=== PATIENT | female | born 1945 | race Caucasian/White ===

== ENCOUNTER → 2016-03-29 | Outpatient (CLI) | payer BC ==
[~2016-03-29] MED LIST: ASCO500T16 PO; ASPI81TA28 PO; CHOL1TAB42 PO; CYAN500T13 PO; DOCU100C31 PO; FAMO20TA11 PO; FOLI1TAB7 PO; OMEP10CA2 PO; PROBCAP3 PO; PSYL55.43 PO; RESVERATROL PO; VITAMIN B6 PO; VITAMIN E PO; [UNRECOGNIZED DRUG - OTHER] PO
[2016-03-29 12:16] LABS: URINE APPEARANCE CLEAR (CLEAR); URINE BILIRUBIN NEG (NEG); URINE COLOR YELLOW; URINE EPITHELIAL CELL AUTO 0-5 /lpf (0-5); URINE NITRITE NEG (NEG); URINE PH 5.5 (4.5-7.5); URINE SPECIFIC GRAVITY 1.003 (1.000-1.030); UROBILINOGEN NEG (NEG)
[2016-03-29 12:21] LABS: MANUAL MICROSCOPIC REQUIRED? NO; REVIEW REQ? NO
== END | disposition home or self-care (01) ==
LOC: C.LABBC 08:31
PROVIDERS: ATTEND Family Medicine
DX: R10.9 Unspecified abdominal pain (principal)

== ENCOUNTER → 2016-04-10 | Outpatient (CLI) | payer BC | END | disposition home or self-care (01) | LOC: C.LABBC 10:57 | PROVIDERS: ATTEND Podiatrist Primary Podiatric Medicine | DX: L03.115 Cellulitis of right lower limb (principal); M79.671 Pain in right foot ==

== ENCOUNTER → 2016-06-01 | Outpatient (CLI) | payer BC ==
--- NOTE | 2016-06-01 10:07 | DIAGNOSTIC IMAGING REPORT ---
KUB HISTORY: Generalized ABDOMINAL PAIN COMPARISON: Chest and abdominal series 08/15/2015. FINDINGS: Large amount of well-formed stool seen throughout the colon. This most pronounced within the sigmoid colon and rectum. Gas-filled loops of small bowel without evidence for small bowel obstruction. Scoliosis is again noted. No renal calculi. No ureteral calculi. No pneumoperitoneum or pneumatosis. IMPRESSION: Large amount of well-formed stool seen within the colon primarily within the distal colon and rectum. This has progressed compared to the prior study. Electronically signed by: Davonte Kendrick M.D. 06/01/2016 10:05 AM Dictated Date/Time: 06/01/2016 10:04 AM
== END | disposition home or self-care (01) ==
LOC: C.RADBC 09:47
PROVIDERS: ATTEND Physician Assistant
DX: R10.9 Unspecified abdominal pain (principal)

== ENCOUNTER → 2016-07-16 | Outpatient (CLI) | payer BC ==
--- NOTE | 2016-07-16 14:37 | DIAGNOSTIC IMAGING REPORT ---
RENAL ULTRASOUND HISTORY: Flank pain RT SIDED BACK PAIN, COMPARISON: None. FINDINGS: Right kidney: Maximum dimension 10.6 cm. No evidence for hydronephrosis. Normal corticomedullary differentiation and cortical thickness. Left kidney: Maximum dimension 9.8 cm. No evidence for hydronephrosis. Normal corticomedullary differentiation and cortical thickness. Bladder: No bladder wall thickening. The bilateral ureteral jets were identified. IMPRESSION: Normal renal ultrasound. Electronically signed by: Alex Mcclelland M.D. 07/16/2016 2:36 PM Dictated Date/Time: 07/16/2016 2:36 PM
== END | disposition home or self-care (01) ==
LOC: C.ULTRBC 13:42
PROVIDERS: ATTEND Family Medicine
DX: M54.9 Dorsalgia, unspecified (principal)

== ENCOUNTER → 2016-08-13 | Outpatient (CLI) | payer BC ==
--- NOTE | 2016-08-16 14:30 | MAMMOGRAPHY REPORT ---
BILATERAL DIGITAL SCREENING MAMMOGRAM WITH CAD: 08/13/2016 CLINICAL HISTORY: Patient presents for routine screening. S/P bilateral augmentation. TECHNIQUE: Current study was also evaluated with a Computer Aided Detection (CAD) system. Bilateral CC and MLO views including implant displaced views were obtained. COMPARISON: Comparison is made to exams dated: 03/04/2015 mammogram, 01/10/2014 mammogram, 12/07/2012 mammogram, 11/08/2011 ultrasound, 11/08/2011 mammogram, and 10/09/2010 mammogram - [facility]. BREAST COMPOSITION: The tissue of both breasts is heterogeneously dense, which may obscure small mas ses. FINDINGS: No suspicious masses, calcifications, or areas of architectural distortion are noted in ei ther breast. There has been no significant interval change compared to prior exams. Bilateral subpec chacho silicone implants are stable in appearance. IMPRESSION: ACR BI-RADS CATEGORY 2: BENIGN There is no mammographic evidence of malignancy. A 1 year screening mammogram is recommended. The pa tient will receive written notification of the results. Approximately 10% of breast cancers are not detected with mammography. A negative mammographic report should not delay biopsy if a clinically suggestive mass is present. Jessenia Schroeder M.D. ah/:08/13/2016 15:18:30 Divorce Lawyer: Zayra Brice, [facility] letter sent: Normal 1/2 BI-RADS Code: ACR BI-RADS Category 2: Benign
== END | disposition home or self-care (01) ==
LOC: C.MAMM 13:54
PROVIDERS: ATTEND Obstetrics & Gynecology
DX: Z12.31 Encounter for screening mammogram for malignant neoplasm of breast (principal); Z98.82 Breast implant status

== ENCOUNTER → 2016-11-01 | Outpatient (CLI) | payer BC ==
--- NOTE | 2016-11-01 15:21 | DIAGNOSTIC IMAGING REPORT ---
LEFT FOURTH AND FIFTH FINGER 3 VIEWS CLINICAL HISTORY: Left fourth and fifth finger pain. COMPARISON STUDY: None. FINDINGS: Oblique fracture within the base of the middle phalanx of the fourth finger which demonstrates slight distraction. There is also an oblique fracture through the proximal shaft of the proximal phalanx of the left fifth finger. This demonstrates mild dorsal angulation and slight overlap. No dislocation. The bones are osteopenic. Soft tissue swelling within the proximal fourth and fifth fingers. IMPRESSION: Fractures within the middle phalanx of the left fourth finger and proximal phalanx of the left fifth finger as described above. Electronically signed by: Davonte Kendrick M.D. 11/01/2016 3:20 PM Dictated Date/Time: 11/01/2016 3:18 PM
== END | disposition home or self-care (01) ==
LOC: C.RADBC 14:52
PROVIDERS: ATTEND Physician Assistant
DX: S62.655A Nondisplaced fracture of middle phalanx of left ring finger, initial encounter for closed fracture (principal); S62.647A Nondisplaced fracture of proximal phalanx of left little finger, initial encounter for closed fracture; X58.XXXA Exposure to other specified factors, initial encounter

== ENCOUNTER → 2016-11-16 | Outpatient (CLI) | payer BC ==
--- NOTE | 2016-11-16 16:25 | DIAGNOSTIC IMAGING REPORT ---
BILATERAL LOWER EXTREMITY VENOUS DOPPLER HISTORY: M25.561 Right knee painM25.561 Tenderness of knee, [id number] COMPARISON STUDY: None. FINDINGS: There is normal compressibility, flow, and augmentation within the bilateral lower extremity deep venous systems. A 1.5 x 0.8 x 0.4 cm right popliteal cyst. IMPRESSION: No DVT within the right or left lower extremity. Electronically signed by: Davonte Kendrick M.D. 11/16/2016 4:24 PM Dictated Date/Time: 11/16/2016 4:23 PM
== END | disposition home or self-care (01) ==
LOC: C.ULTR 15:46
PROVIDERS: ATTEND Physician Assistant Medical
DX: M25.561 Pain in right knee (principal)

== ENCOUNTER → 2016-12-22 | Outpatient (CLI) | payer BC ==
--- NOTE | 2016-12-22 09:57 | DIAGNOSTIC IMAGING REPORT ---
PA CHEST RADIOGRAPH AND UPRIGHT AND SUPINE AP RADIOGRAPHS OF THE ABDOMEN CLINICAL HISTORY: Constipation. COMPARISON STUDY: Chest radiograph December 15, [address] of the abdomen and pelvis November 25, 2015. FINDINGS: Incidental note is made of bilateral breast implants. Note is made of scoliosis of the thoracolumbar spine. Lungs are clear. No pneumothorax or pleural effusion is present. Cardiomediastinal silhouette is normal. There is a moderate amount stool within the colon and large amount of stool within the rectum. The amount of stool is less than shown on exam of June 01, 2016. There is no evidence for a bowel obstruction. IMPRESSION: 1. No free air or evidence of bowel obstruction. 2. Large amount stool within the rectum and moderate amount stool within the colon. Amount of stool diminished compared to exam of June 01, 2016. 3. No acute cardiopulmonary findings. Electronically signed by: Gildardo Moreau M.D. 12/22/2016 9:56 AM Dictated Date/Time: 12/22/2016 9:53 AM
== END | disposition home or self-care (01) ==
LOC: C.RADBC 08:57
PROVIDERS: ATTEND Internal Medicine
DX: K59.00 Constipation, unspecified (principal)

== ENCOUNTER → 2016-12-24 | Outpatient (CLI) | payer BC ==
[2016-12-24 10:55] LABS: BASO % 0.4 %; BASO ABS # 0.01 K/uL (0-0.2); COMPLETE YES; EOS % 2.8 %; LYMPH % 43.2 %; LYMPH ABS # 1.23 K/uL (1.2-3.4); MEAN CELL VOLUME 95.6 fL (80-100); MEAN CORPUSCULAR HGB CONC 32.4 g/dl (32-36); MEAN PLATELET VOLUME 11.9 fL (7.4-10.4); MONO % 13.3 %; NEUT % 40.3 %; PLATELET COUNT 225 K/uL (130-400); RED BLOOD COUNT 4.29 M/uL (4.2-5.4); WHITE BLOOD COUNT 2.85 K/uL (4.8-10.8)
[2016-12-24 11:29] LABS: ALB/GLOB RATIO 1.2 (0.9-2); ALKALINE PHOSPHATASE 67 U/L (45-117); ALT/SGPT 35 U/L (12-78); AST/SGOT 29 U/L (15-37); BLOOD UREA NITROGEN 11 mg/dl (7-18); CARBON DIOXIDE 32 mmol/L (21-32); CHLORIDE 104 mmol/L (98-107); CHOLESTEROL 211 mg/dl (0-200); CHOLESTEROL/HDL RATIO 2.3; CREATININE 0.72 mg/dl (0.60-1.20); GLUCOSE 85 mg/dl (70-99); HDL CHOLESTEROL 92 mg/dl; LDL CHOLESTEROL CALCULATED 105 mg/dl; POTASSIUM 3.8 mmol/L (3.5-5.1); SODIUM 139 mmol/L (136-145); TRIGLYCERIDES 68 mg/dl (0-150); VERY LOW DENSITY LIPOPROT CALC 14 mg/dl
== END | disposition home or self-care (01) ==
LOC: C.LABBC 07:32
PROVIDERS: ATTEND Internal Medicine
DX: Z00.00 Encounter for general adult medical examination without abnormal findings (principal); E78.5 Hyperlipidemia, unspecified; D72.819 Decreased white blood cell count, unspecified

== ENCOUNTER → 2017-01-10 | Outpatient (CLI) | payer BC ==
[~2017-01-10] MED LIST changes: -FOLI1TAB7 PO; +FOLI1TAB8 PO
--- NOTE | 2017-01-12 11:49 | CODING QUERY NO DIAGNOSIS ---
: 1945 TREATMENT RENDERED WITHOUT A DIAGNOSIS To promote full compliance with coding requirements relating to patient care, physician participation is requested in all cases of medical director occupational health uncertainty. Please assist us with providing a diagnosis/symptom for the test(s) below: A diagnosis/symptom was not documented on your Order. A valid diagnosis/symptom is required to bill all insurances. Please remember that we are unable to code a diagnosis of rule out, probable, possible, questionable, or suspected. Tests that require a diagnosis: DOS: 01/10/17 * CYTOMEGALOVIRUS DNA PCR QUANTITATIVE DIAGNOSIS: * EBV DNA QUANT BY PCR DIAGNOSIS: Provider Signature: Date: Thank you Rosie [facility] [employer] [facility] Once completed, please kindly fax back to [phone] For questions please call [phone]
== END | disposition home or self-care (01) ==
LOC: C.LAB1850 14:10
PROVIDERS: ATTEND Internal Medicine Hematology & Oncology
DX: Z01.89 Encounter for other specified special examinations (principal)

== ENCOUNTER → 2017-01-10 | Outpatient (CLI) | payer BC ==
[~2017-01-10] MED LIST changes: +FOLI1TAB7 PO; -FOLI1TAB8 PO
== END | disposition home or self-care (01) ==
LOC: C.PAPS 18:09
PROVIDERS: ATTEND Obstetrics & Gynecology
DX: Z01.419 Encounter for gynecological examination (general) (routine) without abnormal findings (principal)

== ENCOUNTER → 2017-03-14 | Outpatient (CLI) | payer BC ==
[~2017-03-14] MED LIST changes: -FOLI1TAB7 PO; +FOLI1TAB8 PO
[2017-03-14 11:20] LABS: BASO % 0.3 %; BASO ABS # 0.01 K/uL (0-0.2); EOS ABS # 0.21 K/uL (0-0.5); HEMATOCRIT 39.4 % (37-47); HEMOGLOBIN 12.9 g/dL (12.0-16.0); IG# 0.01 K/uL (0.00-0.02); LYMPH % 32.5 %; LYMPH ABS # 1.14 K/uL (1.2-3.4); MEAN CELL VOLUME 94.5 fL (80-100); MEAN CORPUSCULAR HEMOGLOBIN 30.9 pg (25-34); MEAN CORPUSCULAR HGB CONC 32.7 g/dl (32-36); MEAN PLATELET VOLUME 12.9 fL (7.4-10.4); MONO ABS # 0.42 K/uL (0.11-0.59); NEUT % 48.9 %; NEUT ABS # 1.72 K/uL (1.4-6.5); PLATELET COUNT 236 K/uL (130-400); RED CELL DISTRIBUTION WIDTH CV 13.7 % (11.5-14.5); WHITE BLOOD COUNT 3.51 K/uL (4.8-10.8)
[2017-03-14 11:23] LABS: ALBUMIN 3.6 gm/dl (3.4-5.0); ALT/SGPT 35 U/L (12-78); AST/SGOT 30 U/L (15-37); BLOOD UREA NITROGEN 22 mg/dl (7-18); CARBON DIOXIDE 29 mmol/L (21-32); CREATININE 0.83 mg/dl (0.60-1.20); GLUCOSE 83 mg/dl (70-99); POTASSIUM 3.6 mmol/L (3.5-5.1); SODIUM 137 mmol/L (136-145)
[2017-03-14 11:26] LABS: ALKALINE PHOSPHATASE 67 U/L (45-117); CHOLESTEROL 203 mg/dl (0-200); LDL CHOLESTEROL CALCULATED 98 mg/dl
--- NOTE | 2017-03-25 11:23 | CODING QUERY NO DIAGNOSIS ---
TREATMENT RENDERED WITHOUT A DIAGNOSIS To promote full compliance with coding requirements relating to patient care, physician participation is requested in all cases of rayon winder uncertainty. Please assist us with providing a diagnosis/symptom for the test(s) below: A diagnosis/symptom was not documented on your Order. A valid diagnosis/symptom is required to bill all insurances. Please remember that we are unable to code a diagnosis of rule out, probable, possible, questionable, or suspected. Tests that require a diagnosis: DOS: 03/14/17 * CBC WITH AUTO DIFF DIAGNOSIS: * CMP DIAGNOSIS: * LIPID PROFILE FASTING DIAGNOSIS: Provider Signature: Date: Thank you Chiquita Spangler [employer] Once completed, please kindly fax back to [phone] For questions please call [phone]
== END | disposition home or self-care (01) ==
LOC: C.LABBC 08:18
PROVIDERS: ATTEND Internal Medicine
DX: D80.3 Selective deficiency of immunoglobulin G [IgG] subclasses (principal); M81.0 Age-related osteoporosis without current pathological fracture; E78.5 Hyperlipidemia, unspecified

== ENCOUNTER → 2017-06-02 | Outpatient (CLI) | payer BC ==
--- NOTE | 2017-06-02 12:58 | DIAGNOSTIC IMAGING REPORT ---
STERNUM MIN 2 VIEWS CLINICAL HISTORY: M81.0 [id number] Lower back [id number] COMPARISON STUDY: Chest CT 11/25/2015. FINDINGS: No fractures within the sternum. Presternal soft tissues are intact. Bilateral breast implants partially obscure the mid to lower sacrum. IMPRESSION: No fractures identified within the sternum. Electronically signed by: Davonte Kendrick M.D. 06/02/2017 12:56 PM Dictated Date/Time: 06/02/2017 12:50 PM
--- NOTE | 2017-06-02 13:03 | DIAGNOSTIC IMAGING REPORT ---
L-SPINE MIN 4 VIEWS ROUTINE CLINICAL HISTORY: Lower back pain. Osteoporosis. COMPARISON: CT of the abdomen and pelvis November 25, 2015. FINDINGS: There is moderate dextroscoliosis of the lumbar spine. No fracture or suspicious lesion is present. There is mild to moderate disc space scarring at L2-L3. There is moderate lower lumbar spine multilevel facet arthrosis. A moderate to large amount stool is noted within the colon and rectum. IMPRESSION: 1. No lumbar spine fracture. 2. Moderate dextroscoliosis of the lumbar spine. 3. Mild to moderate disc space narrowing at L2-L3. 4. Moderate to large amount stool within the colon and rectum. Electronically signed by: Gildardo Moreau M.D. 06/02/2017 1:01 PM Dictated Date/Time: 06/02/2017 1:00 PM
== END | disposition home or self-care (01) ==
LOC: C.RAD1850 12:27
PROVIDERS: ATTEND Internal Medicine
DX: M54.5 Low back pain (principal); M81.0 Age-related osteoporosis without current pathological fracture; M41.86 Other forms of scoliosis, lumbar region; M51.36 Other intervertebral disc degeneration, lumbar region; K59.00 Constipation, unspecified